=== PATIENT | female | born 1945 | race Hispanic/Latino ===

== ENCOUNTER 2018-06-05 09:39 | Emergency (ER) | payer MEDICARE ==
[~2018-06-05] VITALS: Ht 160 cm; Wt 77.6 kg
[~2018-06-05 09:39] MED LIST: ATENOLOL50 MG PO; CRESTOR10 MG PO; GLIMEPIRIDE4 MG PO; LEVOTHYROXINE75 MCG PO; METFORMIN HCL1000 MG PO; ZETIA10 MG PO
[2018-06-05] MEDS ORDERED: HYDROCODONE/APAP 5MG-325MG TAB PO ONE (10:00)
[2018-06-05] MEDS ORDERED: ONDANSETRON HCL 4 MG ORAL DISINTEGRATING TAB PO ONE (10:00)
--- NOTE | 2018-06-05 10:52 | Diagnostic Imaging Report ---
EXAMINATION: Right shoulder series. CLINICAL HISTORY: Severe shoulder pain, chronic. COMPARISON: None. . Discussion: Generalized osteopenia. The osseous structures are intact without evidence of acute, displaced fracture or dislocation. No osteolytic or osteoblastic lesions. There is no evidence of a.c. separation. Degenerative changes in the glenohumeral and acromioclavicular joints. The soft tissues are normal. IMPRESSION: 1. No acute abnormalities. Degenerative changes in the glenohumeral joint. MRI of the shoulder is recommended if there is continued pain and clinical concern for ligamentous or cartilaginous injury. Signed by: Dr. Pernell Lemon M.D. on 06/05/2018 10:49 AM
== END 2018-06-05 11:49 | disposition home or self-care (01) ==
LOC: ER 09:39
DX: M25.511 Pain in right shoulder (principal); I10 Essential (primary) hypertension; E11.9 Type 2 diabetes mellitus without complications; E03.9 Hypothyroidism, unspecified
CPT/HCPCS: 73030; 99284; Q0162

== ENCOUNTER 2020-11-04 11:47 | Emergency (ER) | payer MEDICARE ==
[~2020-11-04] VITALS: Ht 160 cm; Wt 77.6 kg
[2020-11-04] MEDS ORDERED: CASIRIVIMAB/IMDEVIMAB 10 ML in SODIUM CHLORIDE 0.9% 100 ML IV ONE (13:45)
[2020-11-04 15:56] VITALS: BP 140/62
== END 2020-11-04 15:59 | disposition home or self-care (01) ==
LOC: ER 12:12
DX: R05 Cough (principal); U07.1 COVID-19; I10 Essential (primary) hypertension; E11.9 Type 2 diabetes mellitus without complications; E78.5 Hyperlipidemia, unspecified; E03.9 Hypothyroidism, unspecified
CPT/HCPCS: 99283; J7050; U0002